=== PATIENT | male | born 1990 | race Caucasian/White ===

== ENCOUNTER 2024-11-03 11:22 | Emergency (ER) | payer MEDICAID, SELFPAY ==
[2024-11-03 11:30] VITALS: BP 143/86; PULSE 75; TEMP 37.2; O2SAT 97; BMI 30.5
[2024-11-03 11:31] VITALS: O2SAT 100
--- NOTE | 2024-11-03 11:50 | ED_ITS ---
HPI HPI - General Adult General Chief complaint: Dental/Oral Stated complaint: DENTAL PAIN Time Seen by Provider: 11/03/24 11:36 Source: patient Mode of arrival: walk-in Limitations: no limitations History of Present Illness HPI narrative: 33-year-old male to the emergency department chief complaint of dental pain. Patient reports he has had right lower molar discomfort ongoing for a few days. Is been worsening. He has been taking Tylenol at home with only minimal relief of symptoms. He has not followed up with his dentist yet. He had a previous cavity at the site repaired while he was in the . He denies any fever, sweats, chills. Related Data Previous Rx's ?Medication ?Instructions ?Recorded penicillin V potassium 500 mg 500 mg PO Q6H 7 days #28 tabs 11/03/24 tablet Allergies Allergy/AdvReac Type Severity Reaction Status Date / Time succinylcholine AdvReac Severe Cardiac Verified 11/03/24 11:29 Arrest Opioid HPI Opioid Management Most Recent Opioid Data: Last Pain Scale 6 Today, 11:30 Review of Systems ROS Status of ROS 10 or more systems reviewed and unremark able except as noted in history and below PFSH PFSH Social History Little interest or pleasure in doing things: not at all Feeling down, depressed, or hopeless: not at all Exam Narrative Exam Narrative: VITALS: I have reviewed the triage vital signs. GENERAL: Well developed, well appearing adult in no acute distress. NEURO: Alert and oriented. Moves all extremities. Face is symmetric and expressive. EYES: PERRL. No scleral icterus or conjunctival injection. No discharge. HENT: Normocephalic, atraumatic. Hearing is grossly intact. Nares grossly patent and without discharge. Mucous membranes moist. Tooth #30 with some gingival erythema, tender to percussion. No neck swelling. No palpable masses. Normal range of motion of the neck NECK: No JVD. Patient moves neck without restriction. EXTREMITIES: Symmetric muscle bulk. No joint swelling. No clubbing, cyanosis, or deformity. SKIN: Warm and dry. Normal turgor. No rash or lesions appreciated. PSYCH: Mood, affect, and interaction is appropriate to the setting. Constitutional Vital Signs, click to edit/add: Last Vital Signs Temp 99.0 F 11/03/24 11:30 Pulse 75 11/03/24 11:30 Resp 18 11/03/24 11:30 BP 143/86 H 11/03/24 11:30 Pulse Ox 97 11/03/24 11:30 O2 Del Method Room Air 11/03/24 11:30 Course Vital Signs Vital signs: Vital Signs Temperature 99.0 F 11/03/24 11:30 Pulse Rate 75 11/03/24 11:30 Respiratory Rate 18 11/03/24 11:30 Blood Pressure 143/86 H 11/03/24 11:30 Pulse Oximetry 97 11/03/24 11:30 Oxygen Delivery Method Room Air 11/03/24 11:30 Temperature 99.0 F 11/03/24 11:30 Pulse Rate 75 11/03/24 11:30 Respiratory Rate 18 11/03/24 11:30 Blood Pressure 143/86 H 11/03/24 11:30 Pulse Oximetry 97 11/03/24 11:30 Oxygen Delivery Method Room Air 11/03/24 11:30 Medical Decision Making MDM Narrative Medical decision making narrative: 33-year-old male with dental pain. Vital stable, the patient is afebrile. He has dental pain. Exam is unremarkable. No evidence of deep space infection. Penicillin, ibuprofen. Follow-up with dentist tomorrow. Return precautions were discussed. All questions were answered. The patient was discharged home. Discharge Plan Discharge Chief Complaint: Dental/Oral Clinical Impression: Toothache Patient Disposition: Home, Self-Care Time of Disposition Decision: 11:44 Condition: Good Mode of Transportation: Private Vehicle Prescriptions / Home Meds: New penicillin V potassium 500 mg tablet 500 mg PO Q6H 7 Days Qty: 28 0RF Print Language: Greenlandic Instructions: Toothache (ED) Additional Instructions: Call your dentist tomorrow to arrange follow-up. Referrals: Physician,Non-Staff, MD [Primary Care Provider] - 1 week
[2024-11-03] MEDS: IBUPROFEN 400 MG TABLET 800 MG PO (11:59)
== END 2024-11-03 12:00 | disposition home or self-care (01) ==
PROVIDERS: Emergency Provider Student in an Organized Health Care Education/Training Program
DX: K08.89 Other specified disorders of teeth and supporting structures (principal)
CPT/HCPCS: 99282